=== PATIENT | male | born 1995 | race Caucasian/White ===

== ENCOUNTER 2016-08-25 00:05 | Emergency (ER) | payer OTHER ==
[2016-08-25 00:46] LABS: HEMOGLOBIN 15.3 gm/dl (14.0-17.5); RED BLOOD COUNT 5.01 M/UL (4.20-5.50); WHITE BLOOD COUNT 11.7 K/UL (4.5-11.0)
[2016-08-25 01:08] LABS: BUN/CREATININE RATIO 10 (0-10)
== END 2016-08-25 05:40 | disposition home or self-care (01) ==
LOC: ER1 00:05
PROVIDERS: Specialist/Technologist Athletic Trainer
DX: R10.30 Lower abdominal pain, unspecified (principal); R11.2 Nausea with vomiting, unspecified; R19.7 Diarrhea, unspecified
CPT/HCPCS: 36415; 80053; 80307; 81001; 82550; 82553; 83605; 83690; 83874; 84484; 85025; 87086; 93005; 96361; 96374; 96375; 96376; 99284; C9113; J2270; J2405; J2550; J7050; Q9962